=== PATIENT | male | born 1975 | race African-American/Black ===

== ENCOUNTER 2024-09-06 19:10 | Emergency (ER) | payer MEDICAID, OTHER ==
[~2024-09-06] VITALS: Ht 182.9 cm; Wt 138.6 kg
[2024-09-06] MEDS: CROTALIDAE POLYVALENT IMM F VIAL INJ IV ONE (19:30)
[2024-09-06] MEDS: SODIUM CHLORIDE 0.9% 1,000 ML IVB ONE (19:30)
--- NOTE | 2024-09-06 19:30 | ED.PDOC ---
History of Present Illness(SKN HPI Comments 49-year-old male came to ER via EMS for reptile bite. Patient was standing at the side of the road, when he got bit by a rattlesnake, causing puncture wounds at this 4th and 5th digit right hand. Bleeding controlled at this time of care Chief Complaint: Reptile Bite Time Seen by MD: 19:29 Primary Care Provider: DENIES History of Present Illness: Nurses Notes Allergies: Coded Allergies: NO KNOWN ALLERGIES (Unverified , 06/26/11) Information Source: Patient Mode of Arrival: EMS Severity: Moderate Timing: Minutes Duration: Since onset Prehospital treatment: None Location: Extremities (Fourth and 5th digit right hand) Mechanism: Snake Occurence: Outdoors Wound Type: Puncture Associated Signs and Symptoms: Redness, Other (Bleeding) Past Medical History PAST MEDICAL HISTORY: CAD, HTN, NV Surgical History: PTCA Family History Family History: Reviewed,noncontributory to illness Social History Smoker: Non-Smoker Alcohol: Denies ETOH Use Drugs: Denies Drug Use Lives In: Home Constitutional: denies: chills, diaphoresis, fatigue, fever, malaise, sweats, weakness, others EENTM: denies: blurred vision, double vision, ear bleeding, ear discharge, ear drainage, ear pain, ear ringing, eye pain, eye redness, hearing loss, mouth pain, mouth swelling, nasal discharge, nose bleeding, nose congestion, nose pain, photophobia, tearing, throat pain, throat swelling, voice changes, others Respiratory: denies: cough, hemoptysis, orthopnea, SOB at rest, shortness of breath, SOB with excertion, stridor, wheezing, others Cardiovascular: denies: chest pain, dizzy spells, diaphoresis, Dyspnea on exertion, edema, irregular heart beat, left arm pain, lightheadedness, palpitations, PND, syncope, others Gastrointestinal: denies: abdomen distended, abdominal pain, blood streaked bowels, constipated, diarrhea, dysphagia, difficulty swallowing, hematemesis, melena, nausea, poor appetite, poor fluid intake, rectal bleeding, rectal pain, vomiting, others Genitourinary: denies: burning, dysuria, flank pain, frequency, hematuria, incontinence, penile discharge, penile sore, pain, testicle pain, testicle swelling, urgency, others Neurological: denies: dizziness, fainting, headache, left sided numbness, left sided weakness, numbness, paresthesia, pre-existing deficit, right sided numbness, right sided weakness, seizure, speech problems, tingling, tremors, weakness, others Musculoskeletal: denies: back pain, gout, joint pain, joint swelling, muscle pain, muscle stiffness, neck pain, others Integumetry: reports: wounds (Puncture wound 4th and 5th digit right hand); denies: bruises, change in color, change in hair/nails, dryness, laceration, lesions, lumps, rash, others Allergic/Immunocompromised: denies: Difficulty Healing, Frequent Infections, Hives, Itching, others Hematologic/Lymphatic: denies: anemia, blood clots, easy bleeding, easy bruising, swollen glands, others Endocrine: denies: excessive hunger, excessive sweating, excessive thirst, excessive urination, flushing, intolerance to cold, intolerance to heat, unexplained weight gain, unexplained weight loss, others Psychiatric: denies: anxiety, bipolar disorder, depression, hopeless, panic dis order, schizophrenia, sleepless, suicidal, others Physical Exam General Appearance: No Apparent Distress, Normal HEENT: Normal ENT Inspection, Pharynx Normal, TMs Normal Neck: Full Range of Motion, Non-Tender, Normal, Normal Inspection Respiratory: Chest Non-Tender, Lungs Clear, No Accessory Muscle Use, No Respiratory Distress, Normal Breath Sounds Cardiovascular: No Edema, No JVD, No Murmur, No Gallop, Normal Peripheral Pulses, Regular Rate/Rhythm Breast Exam: Deferred Gastrointestinal: No Organomegaly, Non Tender, No Pulsatile Mass, Normal Bowel Sounds, Soft Genitalia: Deferred Pelvic: Deferred Rectal: Deferred Extremities: No calf tenderness, Normal capillary refill, Normal inspection, Normal range of motion, Non-tender, No pedal edema Musculoskeletal : Apperance: Normal Neurologic: Alert, special systems technician II-XII nml as Tested, No Motor Deficits, Normal Affect, Normal Mood, No Sensory Deficits Cerebellar Function: Normal Reflexes: Normal Skin: Dry, Normal Color, Warm, Wounds (Puncture wound 4th and 5th digit right hand) Lymphatic: No Adenopathy Was a procedure done? Was a procedure done?: No Differential Diagnosis (INTG) Differential Diagnosis: Cellulitis, Puncture Wound, Retained Foreign Body, Other (Snake bite) X-Ray, Labs, Meds, VS Vital Signs Date Time Temp Pulse Resp B/P (MAP) Pulse Ox O2 Delivery O2 Flow Rate FiO2 09/06/24 19:12 98.8 74 18 118/76 (90) 99 98.8 Lab Test 09/06/24 19:29 Range/Units White Blood Count 8.2 4.4-10.8 10^3/uL Red Blood Count 5.18 4.5-5.90 10^6/uL Hemoglobin 15.3 13.5-17.5 g/dL Hematocrit 45.7 41.0-53.0 % Mean Corpuscular Volume 88.2 80.0-100.0 fL Mean Corpuscular Hemoglobin 29.6 28.0-32.0 pg Mean Corpuscular Hemoglobin Concent 33.6 32.0-36.0 g/dL Red Cell Distribution Width 16.1 H 11.8-14.3 % Platelet Count 110 L 140-450 10^3/uL Mean Platelet Volume 7.7 6.9-10.8 fL Neutrophils (%) (Auto) 54.2 37.0-80.0 % Lymphocytes (%) (Auto) 34.1 10.0-50.0 % Monocytes (%) (Auto) 9.3 0.0-12.0 % Eosinophils (%) (Auto) 1.2 0.0-7.0 % Basophils (%) (Auto) 1.2 0.0-2.0 % Neutrophils # (Auto) 4.4 1.6-8.6 10 ^3/uL Lymphocytes # (Auto) 2.8 0.4-5.4 10 ^3/uL Monocytes # (Auto) 0.8 0-1.3 10 ^3/uL Eosinophils # (Auto) 0.1 0-0.8 10 ^3/uL Basophils # (Auto) 0.1 0-0.2 10 ^3/uL Nucleated Red Blood Cells 0.1 % Prothrombin Time Pending Prothrombin Time INR Pending Activated Partial Thromboplast Time Pending Fibrinogen Pending Sodium Level 145 136-145 mmol/L Potassium Level 3.9 3.5-5.1 mmol/L Chloride Level 112 H 98-107 mmol/L Carbon Dioxide Level 24 20-31 mmol/L Anion Gap 9 5-15 Blood Urea Nitrogen 15 9-23 mg/dL Creatinine 1.05 0.700-1.30 mg/dL Glomerular Filtration Rate Calc 86 >90 mL/min BUN/Creatinine Ratio 14.3 10.0-20.0 Serum Glucose 86 74-106 mg/dL Calcium Level 9.3 8.7-10.4 mg/dL Total Bilirubin 0.5 0.2-1.0 mg/dL Aspartate Amino Transferase (AST) 15 13-40 U/L Alanine Aminotransferase (ALT) 13 7-40 U/L Alkaline Phosphatase 110 46-116 U/L Creatine Kinase 303 H 46-171 U/L Total Protein 6.9 5.7-8.2 g/dL Albumin 4.4 3.2-4.8 g/dL Time of 1ST Reevaluation: 19:26 Reevaluation 1ST: Unchanged Patient Education/Counseling: Diagnosis, Treatment Family Education/Counseling: No Family Present Departure 1 Departure Time of Disposition: 20:10 Impression: Primary Impression: Toxic effect of rattlesnake venom Additional Impression: Rattlesnake bite Disposition: 02 SHORT TERM HOSPITAL Admit to: Other (transfer) Condition: Guarded Discharged With: Self Comments Rattlesnake Envenomation to Right Hand Chief Complaint: Rattlesnake bite to right hand History of Present Illness: 49-year-old male presented via EMS approximately one hour after sustaining a rattlesnake bite to his right hand. The bite resulted in wounds to the fourth and fifth digits of the right hand. Patient was transported promptly for emergency evaluation and treatment. Initial laboratory studies revealed thrombocytopenia and significantly elevated creatinine, indicating early systemic effects of envenomation. Review of Systems: Limited due to acute presentation Constitutional: No fever reported Musculoskeletal: Right hand pain and swelling Remainder of systems deferred due to emergency nature of presentation Physical Exam: General: Alert male in acute distress Right Hand: Visible puncture wounds to fourth and fifth digits with surrounding edema Remainder of exam deferred due to acute nature of presentation Lab Results: CBC: - Platelets: 110,000/L (Low) - Remainder of CBC unremarkable Chemistry: - Creatinine: 303 (Significantly elevated) Coagulation Studies: - Fibrinogen: Pending - INR: Pending Imaging and Other Relevant Results: No imaging studies documented Medical Decision Making: Summary Statement: 49-year-old male with rattlesnake envenomation to right hand presenting with laboratory evidence of systemic toxicity including thrombocytopenia and acute kidney injury. Problem List: 1. Rattlesnake envenomation 2. Acute thrombocytopenia 3. Acute kidney injury Differential Diagnosis: 1. Rattlesnake envenomation with systemic toxicity 2. Compartment syndrome 3. Coagulopathy ED Course: Patient received IV fluid bolus, tetanus prophylaxis, and was started on CroFab (antivenom). Transfer arranged to [facility] for higher level of care and continued antivenom administration. Assessment and Plan: 1. Rattlesnake Envenomation: - Initiated CroFab antivenom therapy - IV fluid resuscitation - Transfer accepted to [facility] for higher level of care - Continuous monitoring of coagulation parameters and organ function 2. Acute Kidney Injury: - Likely secondary to envenomation - IV fluid resuscitation initiated - Will require close monitoring during hospitalization 3. Thrombocytopenia: - Secondary to envenomation - Being addressed with antivenom therapy - Requires serial monitoring Billing Information: ICD-10: T63.011A - Toxic effect of rattlesnake venom, accidental, initial encounter ICD-10: N17.9 - Acute kidney failure, unspecified ICD-10: D69.59 - Other secondary thrombocytopenia Critical Care Note Critical Care Time?: Yes (35 min-critical care time only) Critical care comment: Total critical care time: Approximately 36 minutes Due to a high probability of clinically significant, life threatening deterioration, the patient required my highest level of preparedness to intervene emergently and I personally spent this critical care time directly and personally managing the patient. This critical care time included obtaining a history; examining the patient; pulse oximetry; ordering and review of studies; arranging urgent treatment with development of a management plan; evaluation of patient's response to treatment; frequent reassessment; and, discussions with other providers. This critical care time was performed to assess and manage the high probability of imminent, life-threatening deterioration that could result in multi-organ failure. It was exclusive of separately billable procedures and treating other patients. Stability Stability form required: No Heart Score Heart Score: Heart Score Response (Comments) Value History N/A 0 EKG N/A 0 Age N/A 0 Risk Factors N/A 0 Troponin N/A 0 Total 0 I personally scribed for VALERIA MALONE MD ([email or web address]) on 09/06/24 at 19:30. Electronically submitted by Antelmo Silva ([email or web address]). VALERIA MALONE MD Sep 06, 2024 19:30
[2024-09-06 19:41] LABS: Basophils # (auto) 0.1 10 ^3/uL (0-0.2); Basophils % (auto) 1.2 % (0.0-2.0); Eosinophils # (auto) 0.1 10 ^3/uL (0-0.8); Eosinophils % (auto) 1.2 % (0.0-7.0); Hematocrit 45.7 % (41.0-53.0); Hemoglobin 15.3 g/dL (13.5-17.5); Lymphocytes # (auto) 2.8 10 ^3/uL (0.4-5.4); Lymphocytes % (auto) 34.1 % (10.0-50.0); Mean Corpuscular Hemoglobin 29.6 pg (28.0-32.0); Mean Corpuscular Hgb Conc. 33.6 g/dL (32.0-36.0); Mean Corpuscular Volume 88.2 fL (80.0-100.0); Monocytes # (auto) 0.8 10 ^3/uL (0-1.3); Monocytes % (auto) 9.3 % (0.0-12.0); Neutrophils # (auto) 4.4 10 ^3/uL (1.6-8.6); Neutrophils % (auto) 54.2 % (37.0-80.0); Nucleated Red Blood Cells % 0.1 %; Platelet Count (auto) 110 10^3/uL (140-450); Red Blood Cells 5.18 10^6/uL (4.5-5.90); Red Cell Distribution Width 16.1 % (11.8-14.3); White Blood Cell 8.2 10^3/uL (4.4-10.8)
[2024-09-06 19:55] LABS: Alanine Aminotransferase 13 U/L (7-40); Albumin 4.4 g/dL (3.2-4.8); Alkaline Phosphatase 110 U/L (46-116); Anion Gap 9 (5-15); Aspartate Aminotransferase 15 U/L (13-40); BUN/Creatinine Ratio 14.3 (10.0-20.0); Bilirubin, Total 0.5 mg/dL (0.2-1.0); Blood Urea Nitrogen 15 mg/dL (9-23); Calcium 9.3 mg/dL (8.7-10.4); Carbon Dioxide 24 mmol/L (20-31); Glucose 86 mg/dL (74-106); Potassium 3.9 mmol/L (3.5-5.1); Sodium 145 mmol/L (136-145); Total Protein 6.9 g/dL (5.7-8.2)
[2024-09-06 20:07] LABS: Chloride 112 mmol/L (98-107); Creatine Kinase IFCC 303 U/L (46-171)
[2024-09-06] MEDS: TETANUS-DIPTH-ACEL PERTUSSIS 0.5ML SYR Tdap IM ONE (20:24)
[2024-09-06 20:32] VITALS: PULSE 76; RESP 20; O2SAT 96
[2024-09-06 20:33] LABS: INR 1.04 (0.9-1.15); Partial Thromboplastin Time 28.4 SEC (24.5-34.5)
[2024-09-06] MEDS: ONDANSETRON HCL 4 MG/2 ML VIAL IV ONE (20:42)
[2024-09-06] MEDS: MORPHINE SULFATE 4 MG/ML SYR/VIAL IV ONE (20:43)
[2024-09-06 21:06] VITALS: BP 117/74; PULSE 57; RESP 17; TEMP 98.3; O2SAT 95
== END 2024-09-06 21:17 | disposition short-term general hospital (02) ==
LOC: EDBD 19:10 → EDSEX 19:10 → ER 19:14
DX: S61.234A Puncture wound without foreign body of right ring finger without damage to nail, initial encounter (principal); S61.236A Puncture wound without foreign body of right little finger without damage to nail, initial encounter; T63.011A Toxic effect of rattlesnake venom, accidental (unintentional), initial encounter; I10 Essential (primary) hypertension; D69.59 Other secondary thrombocytopenia; N17.9 Acute kidney failure, unspecified; I25.10 Atherosclerotic heart disease of native coronary artery without angina pectoris; Y92.89 Other specified places as the place of occurrence of the external cause
CPT/HCPCS: 36415; 80053; 82550; 85025; 85384; 85610; 85730; 90471; 90715; 96361; 96374; 96375; 99291; J0840; J2270; J2405